=== PATIENT | female | born 2000 | race Asian ===

== ENCOUNTER 2021-03-08 20:08 | Emergency (ER) | payer OTHER, BC ==
[2021-03-08] MEDS ORDERED: Ibuprofen 200 MG TAB ONE (22:08)
== END 2021-03-08 21:00 | disposition home or self-care (01) ==
LOC: CSHERS 20:08
DX: S80.212A Abrasion, left knee, initial encounter (principal); R07.81 Pleurodynia; V89.2XXA Person injured in unspecified motor-vehicle accident, traffic, initial encounter
CPT/HCPCS: 71045